=== PATIENT | male | born 2000 | race Hispanic/Latino ===

== ENCOUNTER 2019-09-12 21:24 | Emergency (ER) | payer OTHER, SELFPAY ==
[2019-09-12 21:32] VITALS: BP 141/93; PULSE 71; RESP 16; TEMP 36.9; O2SAT 98; BMI 23.6
[2019-09-12 21:40] VITALS: BP 131/65; PULSE 86; RESP 16; O2SAT 99
--- NOTE | 2019-09-12 21:42 | ED.ALLEREA ---
HPI - Allergic Reaction General Chief complaint: Allergic Reaction Stated complaint: Allergic Reaction to seafood Time Seen by Provider: 09/12/19 21:36 Source: patient Mode of arrival: Ambulatory Limitations: no limitations History of Present Illness HPI narrative: 18-year-old male here for evaluation of what he believes allergic reaction. Patient states that approximately 1 hour prior to arrival here in the emergency department he was eating fried catfish. He states he has had catfish multiple times in the past. He does not know any other ingredients. He states that this was at home and was not eating out. He states that very shortly after eating the catfish she started having sinus congestion and swelling in his throat and some problems breathing. No nausea vomiting. No rashes. Has not tried anything for symptoms prior to arrival. He initially waited for short period of time to see if it would improve on its own and when it did and he was instructed by family and friends to come to the emergency department. He has never had a reaction like this in the past. Related Data Previous Rx's Medication Instructions Recorded diphenhydramine HCl [Benadryl] 25 mg PO Q6H PRN 3 Days #30 cap 09/12/19 prednisone 40 mg PO DAILY 3 Days #6 tab 09/12/19 Allergies Allergy/AdvReac Type Severity Reaction Status Date / Time No Known Drug Allergies Allergy Verified 09/12/19 21:32 Review of Systems Constitutional Constitutional: Denies fever(s) and Denies headache(s) Eyes Eyes: Denies itchy eyes ENT Ears, Nose, Mouth, and Throat: Denies change in voice, Denies vertigo, Denies dizziness, Denies headache(s), Reports hoarseness, Denies lip swelling, Reports nasal congestion, Reports sinus pain, Reports sinus pressure, Reports sore throat, Denies throat swelling and Denies tongue swelling Cardiovascular Cardiovascular: Denies chest pain and Reports dyspnea Respiratory Respiratory: Reports dyspnea and Denies wheezing Gastrointestinal Gastrointestinal: Denies abdominal pain, Denies change in bowel habits, Denies diarrhea and Denies vomiting Integumentary/Breasts Skin/Breast: Denies lesions and Denies rash Neurologic Neurologic: Denies vertigo, Denies dizziness and Denies headache(s) Hematologic/Lymphatic Hematologic/Lymphatic: Denies easy bleeding and Denies easy bruising Allergic/Immunologic Allergic/Immunologic: Denies urticaria, Denies itchy eyes, Denies lip swelling, Denies throat swelling, Denies tongue swelling and Denies wheezing Patient History Medical History Healthy adult (Acute) Social History Smoking Status: Never smoker Smoking Status: Never smoker Substance Use Type: does not use Exam Initial Vital Signs Initial Vital Signs: Vital Signs Temperature 98.4 F 09/12/19 21:32 Pulse Rate 71 09/12/19 21:32 Respiratory Rate 16 09/12/19 21:32 Blood Pressure 141/93 H 09/12/19 21:32 Pulse Oximetry 98 09/12/19 21:32 Const General: cooperative, comfortable, well developed and well groomed Limitations: mental status not altered HENMT Head: normal to inspection and normocephalic Ears: hearing grossly normal bilaterally Nose: external nose normal Face and sinus: normal facial exam Mouth: oral mucosae normal, lip normal, tongue normal and No drooling Teeth and gingiva: dentition normal Throat: no uvular edema Resp Effort & Inspection: normal respiratory effort Auscultation: clear to auscultation bilaterally Cardio Rate: regular rate Rhythm: regular rhythm GI Inspection: non-distended Palpation: soft Skin Lesions: no lesions Rashes: no rashes Extrem General: normal to inspection and capillary refill normal Psych Appearance: well kempt Scores GCS Tushar coma scale eye opening: Spontaneous Mcpherson coma scale verbal response: Orientated Tushar coma scale motor response: Obey commands Tushar coma scale total score: 15 Course Orders Ordered: Discontinued Medications Diphenhydramine HCl (Benadryl) 25 mg IV NOW ONE Stop: 09/12/19 21:43 Last Admin: 09/12/19 21:55 Dose: 25 mg Documented by: CTRHEATHER Methylprednisolone (Solu-Medrol 125 Mg Vial) 125 mg IV NOW ONE Stop: 09/12/19 21:43 Last Admin: 09/12/19 21:54 Dose: 125 mg Documented by: CTRHEATHER Vital Signs Vital signs: Vital Signs - 8 hr 09/12/19 21:32 09/12/19 21:40 09/12/19 22:03 Temperature 98.4 F Pulse Rate 71 86 82 Respiratory Rate 16 16 16 Blood Pressure 141/93 H 131/65 129/88 Pulse Oximetry 98 99 99 09/12/19 22:37 09/12/19 22:55 Temperature Pulse Rate 70 82 Respiratory Rate 16 16 Blood Pressure 124/83 Pulse Oximetry 98 99 MDM - Allergic Reaction MDM Narrative Medical decision making narrative: Patient has a relatively normal exam however does sound somewhat congested when he is talking. Given the fact that this was a fairly sudden onset after he started eating the catfish I would assume that this is most likely an allergic reaction. Low suspicion for anaphylaxis. Was given IV Benadryl and Solu-Medrol which patient states greatly improved his symptoms. He had no respiratory distress while he was here in the ER. No other skin changes. Patient did not require the need of epinephrine. Had a long discussion with the patient regarding his symptoms. Will send home with prescriptions for medications for the next couple days. I feel patient can be safely discharged home at this point. We did discuss strict return precautions and follow-up instructions. He expressed understanding and agreement. Discharge Plan Departure Patient Disposition: Home Clinical Impression: Allergic reaction Qualifiers: Encounter type: initial encounter Qualified Code(s): T78.40XA - Allergy, unspecified, initial encounter Discharge Date/Time: 09/12/19 22:55 Instructions: DI for General Allergic Reactions Activity Restrictions/Additional Instructions: Take the medications as directed. If you wake up tomorrow and feel 100% back to normal you could forego filling the prescriptions however if you feel any sort of symptoms tomorrow please fill the prescriptions and take them as directed. 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 Prescriptions: New prednisone 20 mg tablet 40 mg PO DAILY 3 Days Qty: 6 RF: 0 diphenhydramine HCl [Benadryl] 25 mg capsule 25 mg PO Q6H PRN (Reason: allergic reaction) 3 Days Qty: 30 RF: 0
[2019-09-12] MEDS: methylPREDNISolone 125 MG/2 ML VIAL IV (21:54)
[2019-09-12] MEDS: diphenhydrAMINE 50 MG/ML VIAL 25 MG IV (21:55)
[2019-09-12 22:03] VITALS: BP 129/88; PULSE 82; RESP 16; O2SAT 99
[2019-09-12 22:37] VITALS: BP 124/83; PULSE 70; RESP 16; O2SAT 98
[2019-09-12 22:55] VITALS: PULSE 82; RESP 16; O2SAT 99
== END 2019-09-12 22:55 | disposition home or self-care (01) ==
PROVIDERS: Emergency Provider Emergency Medicine
DX: T78.40XA Allergy, unspecified, initial encounter (principal); R06.00 Dyspnea, unspecified; J02.9 Acute pharyngitis, unspecified
CPT/HCPCS: 96374; 96375; 99283; 99284; J1200; J2930